=== PATIENT | male | born 1995 | race Caucasian/White ===

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

== ENCOUNTER 2017-03-13 18:50 | Emergency (ER) | payer BC ==
[~2017-03-13] VITALS: Ht 188 cm; Wt 123.0 kg
[2017-03-13 21:55] LABS: BASO # 0.1 (0.02-0.10); EOS # 0.2 (0.04-0.40); EOS % 1.8 % (0.0-4.0); HEMATOCRIT 41.1 % (36.0-47.0); HEMOGLOBIN 14.1 g/dL (12.5-16.1); LYMPH# 2.4 (1.50-4.00); MEAN CELL VOLUME 85 fl (78-95); MEAN CORPUSCULAR HEMOGLOBIN 29 pg (26-32); MEAN CORPUSCULAR HGB CONC 34 g/dL (33-37); MEAN PLATELET VOLUME 9.6 fl (7.4-10.4); MONO # 0.9 (0.20-0.80); NEU # 7.3 (1.40-6.50); PLATELET COUNT 237 K/mm3 (130-400); RED BLOOD COUNT 4.85 M/mm3 (4.20-5.60); RED CELL DISTRIBUTION WIDTH 12.4 % (11.5-14.5); WHITE BLOOD COUNT 10.8 K/mm3 (4.8-10.8)
[2017-03-13 22:57] LABS: ERYTHROCYTE SEDIMENTATION RATE 3 mm/hr (0-15)
[2017-03-13 23:25] VITALS: BP 113/60
== END 2017-03-13 23:25 | disposition home or self-care (01) ==
LOC: ED 18:50
PROVIDERS: Family Medicine
DX: R51 Headache (principal); R11.2 Nausea with vomiting, unspecified; H53.9 Unspecified visual disturbance; F41.9 Anxiety disorder, unspecified; R06.4 Hyperventilation; G43.909 Migraine, unspecified, not intractable, without status migrainosus
CPT/HCPCS: J0595; J1885; J2060; J7030

== ENCOUNTER → 2018-11-20 | Outpatient (CLI) | payer BC | LOC: RAD 08:45 | DX: K76.0 Fatty (change of) liver, not elsewhere classified (principal) ==

== ENCOUNTER → 2019-01-06 | Outpatient (CLI) | payer BC | LOC: LAB 15:49 | DX: L02.419 Cutaneous abscess of limb, unspecified (principal) ==

== ENCOUNTER 2019-06-30 11:45 | Emergency (ER) | payer BC ==
[~2019-06-30] VITALS: Wt 127.3 kg
[2019-06-30] MEDS ORDERED: CYCLOBENZAPRINE10 M1 PO (11:51)
[2019-06-30 12:18] LABS: BASO # 0.1 (0.02-0.10); EOS # 0.2 (0.04-0.40); EOS % 2.2 % (0.0-4.0); HEMATOCRIT 44.2 % (42.0-52.0); HEMOGLOBIN 14.9 g/dL (13.5-18.0); MEAN CELL VOLUME 85 fl (78-100); MEAN CORPUSCULAR HEMOGLOBIN 29 pg (27-31); MEAN CORPUSCULAR HGB CONC 34 g/dL (33-37); MEAN PLATELET VOLUME 9.9 fl (7.4-10.4); MONO # 0.6 (0.20-0.80); NEU # 4.3 (1.40-6.50); PLATELET COUNT 254 K/mm3 (130-400); RED CELL DISTRIBUTION WIDTH 12.7 % (11.5-14.5); WHITE BLOOD COUNT 7.2 K/mm3 (4.8-10.8)
[2019-06-30 12:26] LABS: ALBUMIN 4.5 g/dL (3.5-5.0)
[2019-06-30 12:27] LABS: POTASSIUM 3.7 mmol/L (3.5-5.1)
[2019-06-30 12:28] LABS: CALCIUM 9.9 mg/dL (8.3-10.5)
[2019-06-30 12:29] LABS: TOTAL PROTEIN 7.2 g/dL (6.4-8.3)
[2019-06-30] MEDS ORDERED: KETOROLAC10 MG PO (13:27)
[2019-06-30 13:38] VITALS: BP 123/69
== END 2019-06-30 13:35 | disposition home or self-care (01) ==
LOC: ED 11:45
PROVIDERS: Family Medicine
DX: R10.31 Right lower quadrant pain (principal); F90.9 Attention-deficit hyperactivity disorder, unspecified type; G43.909 Migraine, unspecified, not intractable, without status migrainosus
CPT/HCPCS: J1885

== ENCOUNTER → 2019-12-02 | Emergency (ER) | payer BC ==
[~2019-12-02] VITALS: Ht 185.4 cm; Wt 122.7 kg
[~2019-12-02] MED LIST changes: +CYCLOBENZAPRINE10 M1 PO; +KETOROLAC10 MG PO; +SEPTRA DS 8001 TAB PO
[2019-12-03 00:29] VITALS: BP 119/69
== END ==
LOC: ED 23:04
DX: L60.0 Ingrowing nail (principal)

== ENCOUNTER 2019-12-14 21:57 | Emergency (ER) | payer BC ==
[~2019-12-14] VITALS: Ht 190.5 cm; Wt 125.0 kg
[2019-12-14 22:55] VITALS: BP 133/85
== END 2019-12-14 22:55 | disposition home or self-care (01) ==
LOC: ED 21:57
DX: S91.311A Laceration without foreign body, right foot, initial encounter (principal); W20.8XXA Other cause of strike by thrown, projected or falling object, initial encounter; Y92.009 Unspecified place in unspecified non-institutional (private) residence as the place of occurrence of the external cause

== ENCOUNTER 2020-10-10 14:16 | Emergency (ER) | payer BC ==
[2020-10-10 15:37] LABS: BASO # 0.01 (0.02-0.10); EOS # 0.01 (0.04-0.40); EOS % 0.2 % (0.0-4.0); HEMATOCRIT 44.5 % (42.0-52.0); HEMOGLOBIN 15.1 g/dL (13.5-18.0); LYMPH# 0.79 (1.50-4.00); MEAN CELL VOLUME 84 fl (78-100); MEAN CORPUSCULAR HEMOGLOBIN 28 pg (27-31); MEAN CORPUSCULAR HGB CONC 34 g/dL (33-37); MEAN PLATELET VOLUME 9.7 fl (7.4-10.4); MONO # 0.27 (0.20-0.80); NEU # 3.04 (1.40-6.50); PLATELET COUNT 148 K/mm3 (130-400); RED BLOOD COUNT 5.31 M/mm3 (4.20-5.60); RED CELL DISTRIBUTION WIDTH 12.5 % (11.5-14.5); WHITE BLOOD COUNT 4.1 K/mm3 (4.8-10.8)
[2020-10-10 15:41] LABS: ALBUMIN 4.3 g/dL (3.5-5.0); POTASSIUM 3.8 mmol/L (3.5-5.1)
[2020-10-10 15:42] LABS: CALCIUM 8.7 mg/dL (8.3-10.5)
[2020-10-10 15:43] LABS: TOTAL PROTEIN 7.4 g/dL (6.4-8.3)
[2020-10-10 15:50] LABS: URINE APPEARANCE CLOUDY; URINE COLOR YELLOW
[2020-10-10 15:51] LABS: URINE BILIRUBIN 1+ (NEGATIVE); URINE GLUCOSE NEGATIVE (NEGATIVE); URINE KETONE NEGATIVE (NEGATIVE); URINE PROTEIN(semi-quant) TRACE mg/dL (NEGATIVE)
[2020-10-10 15:53] LABS: URINE BLOOD NEGATIVE (NEGATIVE); URINE LEUKOCYTE ESTERASE TRACE (NEGATIVE); URINE MUCUS PRESENT (NOT PRESENT); URINE NITRATE NEGATIVE (NEGATIVE); URINE UROBILINOGEN NORMAL (NORMAL)
[2020-10-10] MEDS ORDERED: ZOFRAN ODT4 MG PO (16:30)
[2020-10-10 16:51] VITALS: BP 116/62
== END 2020-10-10 16:53 | disposition home or self-care (01) ==
LOC: ED 14:16
PROVIDERS: Nurse Practitioner
DX: U07.1 COVID-19 (principal)
CPT/HCPCS: J2405; J7030

== ENCOUNTER 2020-10-13 16:02 | Emergency (ER) | payer BC ==
[~2020-10-13 16:02] MED LIST changes: +ZOFRAN ODT4 MG PO
[2020-10-13 17:02] LABS: BASO # 0.01 (0.02-0.10); HEMATOCRIT 41.4 % (42.0-52.0); HEMOGLOBIN 14.5 g/dL (13.5-18.0); MEAN CELL VOLUME 81 fl (78-100); MEAN CORPUSCULAR HEMOGLOBIN 29 pg (27-31); MEAN CORPUSCULAR HGB CONC 35 g/dL (33-37); MEAN PLATELET VOLUME 9.5 fl (7.4-10.4); MONO # 0.35 (0.20-0.80); NEU # 3.13 (1.40-6.50); PLATELET COUNT 129 K/mm3 (130-400); RED BLOOD COUNT 5.09 M/mm3 (4.20-5.60); RED CELL DISTRIBUTION WIDTH 12.2 % (11.5-14.5); WHITE BLOOD COUNT 4.1 K/mm3 (4.8-10.8)
[2020-10-13 17:14] LABS: POTASSIUM 3.5 mmol/L (3.5-5.1)
[2020-10-13 17:16] LABS: CALCIUM 8.2 mg/dL (8.3-10.5)
[2020-10-13 17:17] LABS: TOTAL PROTEIN 7.1 g/dL (6.4-8.3)
[2020-10-13 17:19] LABS: TOTAL BILIRUBIN 1.4 mg/dL (0.2-1.2)
[2020-10-13] MEDS ORDERED: DECADRON6 M1 PO (20:07)
[2020-10-13] MEDS ORDERED: ZITHROMAX Z PA250 MG PO (20:07)
[2020-10-13 20:37] VITALS: BP 118/64
== END 2020-10-13 20:25 | disposition home or self-care (01) ==
LOC: ED 16:02
PROVIDERS: Nurse Practitioner
DX: U07.1 COVID-19 (principal); J12.82 Pneumonia due to coronavirus disease 2019
CPT/HCPCS: J2405; J7030

== ENCOUNTER → 2020-12-23 | Outpatient (CLI) | payer BC ==
[~2020-12-23] MED LIST changes: +DECADRON6 M1 PO; +ZITHROMAX Z PA250 MG PO
== END ==
LOC: RAD 15:32
DX: M25.512 Pain in left shoulder (principal)

== ENCOUNTER 2021-01-22 12:46 | Outpatient (RCR) | payer BC | END 2021-01-28 17:00 | disposition home or self-care (01) | LOC: PT 12:46 | DX: M25.561 Pain in right knee (principal) ==

== ENCOUNTER → 2021-09-12 | Outpatient (CLI) | payer OTHER | LOC: RAD 14:18 | DX: M25.512 Pain in left shoulder (principal) ==